=== PATIENT | male | born 1955 | race Hispanic/Latino ===

== ENCOUNTER → 2024-11-18 | Outpatient (CLI) | payer OTHER ==
[~2024-11-18] MED LIST: DIPH25TA51 PO; DOXY100T21 PO; IOHEXOL 350 MG/ML 100ML INFUS..BTL IV ONE
--- NOTE | 2024-11-18 20:23 | HMCIMG ---
EXAM: CT Maxillofacial with Intravenous Contrast. CLINICAL HISTORY: Personal history of other malignant neoplasm of skin, Localized swelling, m TECHNIQUE: Axial computed tomography images of the face with intravenous contrast. Sagittal and coronal reformatted images were generated. CONTRAST: None. COMPARISON: None provided. CT maxillofacial exam with contrast 10/08/2016 FINDINGS: BONES: No acute fracture or aggressive appearing osseous lesion. The mandible is intact. SOFT TISSUES: Irregularly shaped somewhat spiculated enhancing mass within the subcutaneous fat of the left neck posteriorly. Best seen on axial series 3 image #[id number]. Abnormal lobulated enhancing mass within the subcutaneous fat overlying the right maxillary sinus measuring 1.9 x 0.8 x 2.5 cm in transverse, AP and craniocaudal dimension respectively, Previously measuring 1.5 x 1.7 x 3.0 cm. No radiopaque foreign body or focal fluid collection seen. SINUSES: 2.4 cm left maxillary sinus mucous retention cyst ORBITS: The orbits are normal. No retrobulbar hematoma or mass. IMPRESSION: 1. Enhancing mass in the subcutaneous fat overlying the right maxillary sinus, measuring 1.9 x 0.8 x 2.5 cm, slightly decreased from prior. 2. Irregularly shaped spiculated enhancing mass in the left posterior neck subcutaneous fat. 3. 2.4 cm left maxillary sinus mucous retention cyst. /[place]
== END | disposition home or self-care (01) ==
LOC: RAH 12:28
PROVIDERS: ATTEND Dermatology
DX: J34.1 Cyst and mucocele of nose and nasal sinus (principal); J32.0 Chronic maxillary sinusitis; R22.2 Localized swelling, mass and lump, trunk; Z85.828 Personal history of other malignant neoplasm of skin
CPT/HCPCS: 70487; Q9967

== ENCOUNTER → 2024-12-17 | Outpatient (CLI) | payer OTHER ==
[~2024-12-17] MED LIST changes: -IOHEXOL 350 MG/ML 100ML INFUS..BTL IV ONE; +MIDAZOLAM HCL 1 MG/ML 2ML VIAL ONE
[2024-12-17 10:47] LABS: INR 0.97 (0.85-1.15)
--- NOTE | 2024-12-17 12:00 | NUR ---
CT GD LT FACE/CHEEK BX PROCEDURE PERFORMED BY DR Taras BRUNO. PUNCTURE SITE LT CHEEK AND PATIENT TOLERATED PROCEDURE WELL. SPECIMEN X3 COLLECTED AND SENT TO LAB. END OF PROCEDURE AT 1130. BIOPSY NEEDLE REMOVED AND DRESSING APPLIED. NO BLEEDING NOTED. DISCHARGE INSTRUCTIONS GIVEN TO PATIENT AND VERBALIZED UNDERSTANDING. DISCHARGED VIA W/C AT 1200. AAO X3 WITH NO C/O PAIN.
--- NOTE | 2024-12-17 14:57 | HMCIMG ---
PERCUTANEOUS CT-GUIDED BIOPSY OF right facial lesion: CLINICAL HISTORY: This is a 69 [id number] Male with history of basal cell carcinoma with right facial near the nasal fold lesion for biopsy. for CT-guided biopsy of right facial region .. The risk and benefit was explained to the patient. The risks include infection and possible bleed. The patient consented to the procedure. PROCEDURE: Under CT guidance right facial lesion was localized. After sterile prep and drap?, using 1% xylocaine for local anesthetic, using a 18-gauge Bard gun, a total of 3 core biopsies were obtained. The specimen was sent for histology and cell block.. The patient tolerated the procedure and post-biopsy demonstrated no bleed. IMPRESSION: PERCUTANEOUS CT-GUIDED BIOPSY OF right facial lesion WITH SPECIMENS SENT FOR Histology and cell block.. THE PATIENT TOLERATED PROCEDURE WELL. PATHOLOGY REPORT IS PENDING.
== END | disposition home or self-care (01) ==
LOC: RAH 09:19
PROVIDERS: ATTEND Dermatology
DX: C44.319 Basal cell carcinoma of skin of other parts of face (principal); E78.00 Pure hypercholesterolemia, unspecified; Z90.89 Acquired absence of other organs; Z79.01 Long term (current) use of anticoagulants; Z79.899 Other long term (current) drug therapy
CPT/HCPCS: 20206; 85610; 85730; 36415; 88305; 77012; 99152; 99153; J3010; J2250; 20200; G0500

== ENCOUNTER → 2025-02-07 | Outpatient (CLI) | payer OTHER ==
[~2025-02-07] MED LIST changes: +GADOTERATE MEGLUMINE 10 MMOL/20 ML VIAL IV ONE; -MIDAZOLAM HCL 1 MG/ML 2ML VIAL ONE
--- NOTE | 2025-02-11 16:50 | HMCIMG ---
EXAM: MRI Face With and Without Intravenous ContrastCLINICAL HISTORY: R22.1 ??? Localized swelling, mass, and lump in the neck. C44.319 ??? Basal cell carcinoma of the skin of other parts of the face. Follow-up evaluation of right premaxillary and left posterior cervical subcutaneous lesions.TECHNIQUE: Multiplanar, multisequence magnetic resonance imaging of the face was performed before and after intravenous administration of 20 cc of Clariscan contrast. Sequences included axial, coronal, and sagittal T1, T2, STIR, and post-contrast fat-saturated T1-weighted images for optimal assessment of facial soft tissues, skin, musculature, and bony margins.CONTRAST: 20 cc Clariscan administered intravenously.COMPARISON: Prior contrast-enhanced CT maxillofacial scan dated 11/18/2024, showing right maxillary subcutaneous enhancing mass (1.9 x 0.8 x 2.5 cm) and irregular enhancing left posterior cervical lesion. Recent contrast-enhanced MRI neck demonstrating 3.9 x 2.4 x 1.7 cm spiculated left posterior cervical subcutaneous lesion with early trapezius invasion.FINDINGS: PRESEPTAL AND SUPERFICIAL SOFT TISSUES: Right Premaxillary Region: A lobulated subcutaneous enhancing lesion identified in the right anterior premaxillary soft tissue, measuring approximately 1.8 x 0.9 x 2.4 cm. The lesion appears T1 isointense to hypointense, T2 mildly hyperintense, with moderate homogeneous post-contrast enhancement and associated overlying skin thickening/induration. Lesion remains well marginated, without extension into the underlying maxillary bone, facial musculature, or nasal cartilage. No perineural spread along the infraorbital canal or facial nerve. Stable in size and signal characteristics compared to prior studies. Left Posterior Cervical / Nape Region: The spiculated subcutaneous lesion in the left paramedian posterior neck (C4???C5 level) again visualized, measuring 3.9 x 2.4 x 1.7 cm, demonstrating: T1 hypointense, T2/STIR hypointense, and intense heterogeneous post-contrast enhancement, particularly along its irregular margins. Overlying cutaneous thickening and enhancement with early invasion into superficial fibers of the trapezius muscle, evident as subtle fascial plane disruption and intramuscular streaky enhancement. No necrosis or cystic degeneration. Morphology and enhancement are consistent with active locally infiltrative lesion, correlating with findings on MRI neck. Compared with prior contrast-enhanced CT maxillofacial study dated 11/18/2024, the left posterior cervical lesion has increased in size and enhancement, meeting criteria for progressive disease (RECIST 1.1). Findings are consistent with a locally infiltrative recurrent or secondary neoplastic process (possible desmoplastic basal cell carcinoma or fibrosing soft tissue malignancy). Clinical correlation and multidisciplinary oncologic evaluation for resection versus radiotherapeutic planning are recommended. Nasal Cavities: Appear unremarkable.INTRA-ORBITAL STRUCTURES: Optic globes are unremarkable. Unremarkable optic nerve sheath and nerves. Unremarkable intraconal and extraconal spaces. Extra-ocular muscles are unremarkable. Superior ophthalmic veins are symmetric.SELLA /T/ SUPRASELLA: Unremarkable chiasm and post chiasmatic tracts. Normal sella turcica and suprasellar structures. Unremarkable cavernous sinuses.CONTRAST: No other abnormal enhancement identified.VISUALIZED PARANASAL SINUSES: Left Maxillary Sinus: Stable 2.4 cm mucous retention cyst along the floor of the left maxillary sinus???unchanged from prior study. Other Paranasal Sinuses: Otherwise clear with preserved aeration.VISUALIZED ANTERIOR CRANIAL FOSSA: Unremarkable.BONY STRUCTURES: Maxilla, zygoma, nasal bones, and mandible show no cortical erosion or marrow infiltration. Parotid and Submandibular: Normal in size and signal intensity.REGIONAL LYMPH NODES: No pathologically enlarged or abnormally enhancing lymph nodes identified in the visualized cervical or submandibular stations. Radiologic???Clinical Correlation: Contrast-enhanced MRI of the face demonstrates stable right premaxillary lesion and progressive left posterior cervical spiculated lesion with early muscular infiltration, consistent with locally infiltrative recurrent or secondary neoplastic process (possible desmoplastic basal cell carcinoma or fibrosing soft tissue malignancy). No perineural spread, marnie disease, or osseous invasion identified. Clinical correlation and multidisciplinary oncologic evaluation for resection versus radiotherapeutic planning are recommended.IMPRESSION: * Contrast-enhanced MRI of the face demonstrates stable right premaxillary lesion and progressive left posterior cervical spiculated lesion with early muscular infiltration, consistent with locally infiltrative recurrent or secondary neoplastic process (possible desmoplastic basal cell carcinoma or fibrosing soft tissue malignancy). No perineural spread, marnie disease, or osseous invasion identified. Clinical correlation and multidisciplinary oncologic evaluation for resection versus radiotherapeutic planning are recommended. * Left posterior cervical spiculated subcutaneous lesion (3.9 ??? 2.4 ??? 1.7 cm) with early infiltration into superficial trapezius fibers and intense heterogeneous enhancement, consistent with a progressive infiltrative neoplastic process. * Right premaxillary subcutaneous enhancing mass (1.8 ??? 0.9 ??? 2.4 cm) stable without local invasion or progression. * Several stable chronic and incidental findings are noted, as detailed in the body of the report.RECIST 1.1: Right premaxillary lesion stable disease; left posterior cervical lesion progressive disease. /[place]
--- NOTE | 2025-02-11 16:53 | HMCIMG ---
EXAM: MR Neck with and without Intravenous Contrast. CLINICAL HISTORY: R22.1 ??? Localized swelling, mass, and lump in the neck. Evaluation for subcutaneous lesion and possible regional extension. TECHNIQUE: Multiplanar, multisequence magnetic resonance imaging of the neck performed before and after intravenous administration of 20 cc of Clariscan. Imaging included T1-weighted, T2-weighted, STIR, and post-contrast fat-suppressed sequences in axial, coronal, and sagittal planes for soft tissue delineation. CONTRAST: 20 cc Clariscan administered intravenously. COMPARISON: Prior contrast-enhanced CT maxillofacial study dated 11/18/2024, which demonstrated a right maxillary subcutaneous enhancing mass (1.9 x 0.8 x 2.5 cm), a new irregular enhancing lesion in the left posterior neck subcutaneous fat, and a stable left maxillary sinus retention cyst (2.4 cm). FINDINGS: NASOPHARYNX: Unremarkable. OROPHARYNX: Unremarkable. HYPOPHARYNX: Unremarkable. LARYNX: Unremarkable. Normal epiglottis. RETROPHARYNGEAL SPACE: Unremarkable. SALIVARY GLANDS: The parotid and submandibular glands are unremarkable. LYMPH NODES: No lymphadenopathy. THYROID: Unremarkable. No nodule. BONES: No acute fracture or focal osseous lesion. NECK SOFT TISSUES: A spiculated, lobulated subcutaneous mass is identified in the left paramedian posterior cervical region (nape of neck) at approximately the C4???C5 vertebral level. It measures 3.9 x 2.4 x 1.7 cm (CC x TR x AP). On T1-weighted images, it is predominantly hypointense relative to skeletal muscle. On T2-weighted and STIR images, it is hypointense to mildly heterogeneous, consistent with fibrotic or desmoplastic tissue. Following contrast administration, post-contrast T1 fat-saturated images show intense heterogeneous enhancement, most pronounced peripherally with central areas of relative hypointensity. The margins are spiculated and irregular, with subtle infiltration of adjacent subcutaneous fat planes. The overlying skin demonstrates focal thickening and enhancement consistent with cutaneous involvement or reactive inflammation. Early invasion into superficial fibres of the left trapezius muscle is observed, characterized by focal disruption of the fascial plane and enhancing strands within the superficial muscular margin. No central necrosis, cystic component, or hemorrhage detected. ADJACENT AND DEEP STRUCTURES: Deeper musculature, including the sternocleidomastoid (SCM), levator scapulae, and deeper trapezius, appear intact without abnormal enhancement. Major vascular structures, including the carotid, vertebral, and jugular arteries and veins, are patent and preserved with no encasement or narrowing. PARANASAL SINUSES AND MAXILLOFACIAL SOFT TISSUES: A stable 2.4 cm left maxillary sinus retention cyst is noted. The right maxillary subcutaneous enhancing lesion from prior imaging remains unchanged in size, measuring 1.8 x 0.9 x 2.4 cm. RECIST 1.1 COMPARISON STATEMENT: Compared with prior imaging dated 11/18/2024, the left posterior cervical lesion demonstrates interval increase in size (now 3.9 x 2.4 x 1.7 cm from previously described irregular subcutaneous focus), indicating progressive disease by measurable criteria (RECIST 1.1). RADIOLOGIC-CLINICAL CORRELATION: MRI reveals a spiculated, heterogeneously enhancing lesion at the left posterior cervical subcutaneous region with features consistent with a locally invasive neoplastic process. Signal pattern and desmoplastic reaction suggest either fibrosing basal cell carcinoma extension or a secondary fibrosing malignant soft tissue lesion. The early trapezius involvement supports local infiltration but not deep fascial breach. No marnie or distant soft tissue metastasis identified. Clinical correlation and multidisciplinary review for staging, biopsy correlation, and treatment planning (surgical excision versus radiotherapy) are strongly recommended. IMPRESSION: 1. Left paramedian posterior cervical subcutaneous spiculated lesion (3.9 ??? 2.4 ??? 1.7 cm) with intense heterogeneous enhancement and cutaneous thickening. 2. Early infiltration into superficial fibers of the left trapezius muscle, compatible with a locally infiltrative neoplastic process. RECIST 1.1: Interval increase in size of the left posterior cervical lesion compared to November 18, 2024, consistent with progressive disease. No cervical lymphadenopathy or vascular encasement. Several stable chronic and incidental findings are noted, as detailed in the body of the report. /[place]
== END | disposition home or self-care (01) ==
LOC: RAH 12:43
PROVIDERS: ATTEND Dermatology
DX: C44.319 Basal cell carcinoma of skin of other parts of face (principal); R22.1 Localized swelling, mass and lump, neck; K11.6 Mucocele of salivary gland
CPT/HCPCS: 70543 ×2; A9575